=== PATIENT | male | born 1955 | race Caucasian/White ===

== ENCOUNTER 2020-11-27 08:59 | Observation (INO) ==
[2020-11-27] MEDS ORDERED: *HR* OxyCODONE Immed Rel 5 MG TABLET PO PRN ×2 (09:33→13:17)
[2020-11-27] MEDS ORDERED: Ondansetron 4 MG/2 ML VIAL IVP PRN ×2 (09:33→13:17)
[2020-11-27] MEDS ORDERED: Lidocaine -MPF 2% 2 ML VIAL ONE (09:38)
[2020-11-27] MEDS ORDERED: *HR* FentaNYL (PF) 100 MCG/2 ML VIAL ONE (09:38)
[2020-11-27] MEDS ORDERED: *HR* Midazolam HCl 2 MG/2 ML VIAL ONE (09:38)
[2020-11-27] MEDS ORDERED: *HR* Propofol 200 MG/20 ML VIAL IVP ONE (09:38)
[2020-11-27] MEDS ORDERED: levoFLOXacin 500 MG/100 ML 500 MG/100 ML BAG IVPB ONE (09:43)
[2020-11-27] MEDS ORDERED: Ringers Solution, Lactated 1,000 ML IVC SCH (09:45)
[2020-11-27] MEDS ORDERED: Ondansetron 4 MG/2 ML VIAL ONE (10:28)
[2020-11-27] MEDS ORDERED: Dexamethasone 4 MG/ML VIAL ONE (10:28)
[2020-11-27] MEDS ORDERED: EPHEDrine 50 MG/ML VIAL ONE (11:00)
[2020-11-27] MEDS ORDERED: Acetaminophen 325 MG TABLET PO PRN (13:17)
[2020-11-27] MEDS ORDERED: *HR* HYDROcodone/Acet 5/325 mg TABLET PO PRN (13:17)
[2020-11-27] MEDS ORDERED: Naloxone 0.4 MG/ML INJ IVP PRN (13:17)
[2020-11-27] MEDS: 0.9 % Sodium Chloride 1,000 ML IVC SCH ×2 (18:06→21:48)
[2020-11-28] MEDS: 0.9 % Sodium Chloride 1,000 ML IVC SCH ×3 (05:22→20:27)
[2020-11-28 06:42] LABS: Hematocrit 39.9 % (37.5-50.1); Hemoglobin 13.3 g/dL (12.9-16.9)
[2020-11-28] MEDS: Loratadine 10 MG TABLET PO SCH (10:13)
[2020-11-28] MEDS: levoFLOXacin 500 MG/100 ML 500 MG/100 ML BAG IVPB SCH (10:14)
[2020-11-28] MEDS: Fluticasone Propionate Nasal 50 MCG/SPRAY BOTTLE NS SCH (15:41)
[2020-11-29 07:20] VITALS: BP 142/79
[2020-11-29] MEDS: levoFLOXacin 500 MG/100 ML 500 MG/100 ML BAG IVPB SCH (09:54)
[2020-11-29] MEDS: Loratadine 10 MG TABLET PO SCH (09:54)
[2020-11-29] MEDS: Fluticasone Propionate Nasal 50 MCG/SPRAY BOTTLE NS SCH (09:55)
[2020-11-29] MEDS: 0.9 % Sodium Chloride 1,000 ML IVC SCH (09:56)
== END 2020-11-29 13:13 | disposition home or self-care (01) ==
LOC: SAMDAY 08:59 → 3ANU 08:59
PROVIDERS: ADMIT Urology; ATTEND Urology
PROC: UROTURP (2020-11-27 10:45)